=== PATIENT | female | born 1980 | race Caucasian/White ===

== ENCOUNTER 2016-09-25 13:44 | Day surgery (SDC) | payer OTHER ==
[~2016-09-25 13:44] MED LIST: HYDROCODONE/APAP 5/325 TAB PO SCH
--- NOTE | 2016-09-25 14:46 | EDPHY ---
H & P Stated Complaint: [facility] Source: Patient - Personal History LMP (Females 10-55): Over 28 Days Ago Current Tetanus/Diphtheria Vaccine: Yes - Medical/Surgical History Hx Asthma: No Hx Chronic Respiratory Disease: No Hx Diabetes: No Hx Cardiac Disease: No Hx Renal Disease: No Hx Cirrhosis: No Hx Alcoholism: No Hx HIV/AIDS: No Hx Splenectomy or Spleen Trauma: No Other PMH: denies - Social History Smoking Status: Never smoked Time Seen by Provider: 09/25/16 14:35 HPI/ROS: CHIEF COMPLAINT: Abdominal cramping HISTORY OF PRESENT ILLNESS: this is a 35-year-old female presenting to the emergency department [facility] . patient states she took a a portion pill on 08/21/2016 since then his had vaginal spotting. [facility] questionable molar 5 week. patient reports vaginal spotting with some tissue noted in abdominal cramping. denies any other complaints REVIEW OF SYSTEMS: Constitutional: No fever, no chills. Eyes: No discharge. no blurred vision ENT: No sore throat. Cardiovascular: No chest pain, no palpitations. Respiratory: No cough, no shortness of breath. Gastrointestinal: abdominal pain, no vomiting. Genitourinary: No hematuria. Musculoskeletal: No back pain. Skin: No rashes. Neurological: No headache. (Anh Simmons) - Physical Exam Exam: General Appearance: Alert, no distress. tearful Eyes: Pupils equal and round no pallor or injection. ENT, Mouth: Mucous membranes moist. Respiratory: There are no retractions, lungs are clear to auscultation. Cardiovascular: Regular rate and rhythm. Gastrointestinal: Abdomen is soft no distension. Right lower quadrant tenderness suprapubic tenderness on palpation, no masses, bowel sounds normal. Neurological: no focal deficits Skin: Warm and dry, no rashes. Musculoskeletal: Neck is supple nontender. Extremities: symmetrical, full range of motion. Psychiatric: Patient is oriented X 3, acting age appropriate (Anh Simmons) Constitutional: Initial Vital Signs Temperature (C) 36.9 C 09/25/16 13:49 Heart Rate 88 09/25/16 13:49 Respiratory Rate 17 09/25/16 13:49 Blood Pressure 114/76 09/25/16 13:49 O2 Sat (%) 96 09/25/16 13:49 O2 Delivery Mode Room Air Allergies/Adverse Reactions: No Known Allergies Allergy (Unverified 09/25/16 13:49) Home Medications: Medication Instructions Recorded NK [No Known Home Meds] 09/25/16 Medical Decision Making - Diagnostics Imaging Results: Imaging Impressions Pelvic/Renal Ultrasound 09/25/16 14:47 Impression: 1. Suspect right ectopic with a right-sided adnexal mass measuring 7.3 x 4.2 x 4 cm, with small amount of pelvic free fluid, possibly early hemorrhage. 2. Normal left ovary without torsion. 3. No intrauterine or molar identified. Findings and recommendations discussed with Emergency Department physician, Anh Simmons NP at 1613 hour, 09/25/2016. Final report concurs with initial preliminary interpretation. ED Course/Re-evaluation: discussed ED plan of care with patient: CBC, BMP, urinalysis, hCG quant, pelvic ultrasound ordered 1615: Spoke with Dr. Paris ultrasound finding shows right adnexal mass 7.3 x 4.2 x 4 cm more than likely ectopic no IUP seen 1620: discussed results with patient. 1625: Consulted with , she will evaluate patient. 1710: patient report hand doctor Dr. Wiliknson. patient stable, Dr. Dutta at bedside (Anh Simmons) Differential Diagnosis: Other differential diagnosis considered but not limited to IUP, ovarian cyst , ectopic and molar (Anh Simmons) Other Provider: Dr. Dutta has evaluated the patient and will take her to the or. (Saurabh Wilkinson) - Data Points Laboratory Results: Laboratory Results 09/25/16 15:01 09/25/16 15:01 09/25/16 09/25/16 09/25/16 16:33 15:01 15:01 WBC 11.23 10^3/uL H 10^3/uL (3.80-9.50) RBC 4.53 10^6/uL 10^6/uL (4.18-5.33) Hgb 12.8 g/dL g/dL (12.6-16.3) Hct 39.4 % % (38.0-47.0) MCV 87.0 fL fL (81.5-99.8) MCH 28.3 pg pg (27.9-34.1) MCHC 32.5 g/dL g/dL (32.4-36.7) RDW 12.4 % % (11.5-15.2) Plt Count 362 10^3/uL 10^3/uL (150-400) MPV 9.9 fL fL (8.7-11.7) Neut % (Auto) 66.4 % % (39.3-74.2) Lymph % (Auto) 24.8 % % (15.0-45.0) [place] % (Auto) 6.6 % % (4.5-13.0) Eos % (Auto) 1.2 % % (0.6-7.6) Baso % (Auto) 0.5 % % (0.3-1.7) Nucleat RBC Rel Count 0.0 % % (0.0-0.2) Absolute Neuts (auto) 7.46 10^3/uL H 10^3/uL (1.70-6.50) Absolute Lymphs (auto) 2.78 10^3/uL 10^3/uL (1.00-3.00) Absolute Monos (auto) 0.74 10^3/uL 10^3/uL (0.30-0.80) Absolute Eos (auto) 0.13 10^3/uL 10^3/uL (0.03-0.40) Absolute Basos (auto) 0.06 10^3/uL 10^3/uL (0.02-0.10) Absolute Nucleated RBC 0.00 10^3/uL 10^3/uL (0-0.01) Immature Gran % 0.5 % % (0.0-1.1) Immature Gran # 0.06 10^3/uL 10^3/uL (0.00-0.10) Sodium 137 mEq/L mEq/L (134-144) Potassium 3.9 mEq/L mEq/L (3.5-5.2) Chloride 105 mEq/L mEq/L (97-110) Carbon Dioxide 21 mEq/l L mEq/l (22-31) Anion Gap 11 mEq/L mEq/L (8-16) BUN 11 mg/dL mg/dL (7-23) Creatinine 0.6 mg/dL mg/dL (0.6-1.0) Estimated GFR > 60 Glucose 104 mg/dL H mg/dL (70-100) Calcium 9.1 mg/dL mg/dL (8.5-10.4) Total Bilirubin Conjugated Bilirubin Unconjugated Bilirubin AST ALT Alkaline Phosphatase Total Protein Albumin Beta HCG, Quant 4582.10 mIU/mL H mIU/mL (0-4.83) Patient ABO/Rh B POSITIVE Antibody Screen NEGATIVE 09/25/16 15:00 WBC RBC Hgb Hct MCV MCH MCHC RDW Plt Count MPV Neut % (Auto) Lymph % (Auto) [place] % (Auto) Eos % (Auto) Baso % (Auto) Nucleat RBC Rel Count Absolute Neuts (auto) Absolute Lymphs (auto) Absolute Monos (auto) Absolute Eos (auto) Absolute Basos (auto) Absolute Nucleated RBC Immature Gran % Immature Gran # Sodium Potassium Chloride Carbon Dioxide Anion Gap BUN Creatinine Estimated GFR Glucose Calcium Total Bilirubin 0.5 mg/dL mg/dL (0.1-1.4) Conjugated Bilirubin 0.4 mg/dL mg/dL (0.0-0.5) Unconjugated Bilirubin 0.1 mg/dL mg/dL (0.0-1.1) AST 22 IU/L IU/L (14-46) ALT 22 IU/L IU/L (9-52) Alkaline Phosphatase 68 IU/L IU/L (38-126) Total Protein 6.4 g/dL g/dL (6.3-8.2) Albumin 3.9 g/dL g/dL (3.5-5.0) Beta HCG, Quant Patient ABO/Rh Antibody Screen Medications Given: Discontinued Medications Morphine Sulfate (Morphine) 1 mg IVP EDNOW ONE Stop: 09/25/16 14:52 Last Admin: 09/25/16 15:54 Dose: 1 mg Departure - Departure Disposition: To OP Cath/Surgery Clinical Impression: Ectopic Qualifiers: Location of ectopic : unspecified location Intrauterine status: without intrauterine Qualified Code(s): O00.90 - Unspecified ectopic without intrauterine Condition: Fair Referrals: NONE *PRIMARY CARE P,. [Primary Care Provider] - As per Instructions
[2016-09-25 15:10] LABS: % IMMATURE GRANULYOCYTES 0.5 % (0.0-1.1); ABSOLUTE IMMATURE GRANULOCYTES 0.06 10^3/uL (0.00-0.10); ADD DIFF? NO; ADD MORPH? NO; ADD SCAN? NO; ATYPICAL LYMPHOCYTE FLAG 10 (0-99); FRAGMENT RBC FLAG 0 (0-99); HEMATOCRIT 39.4 % (38.0-47.0); HEMOGLOBIN 12.8 g/dL (12.6-16.3); LEFT SHIFT FLG 0 (0-99); LIPEMIA HEMOLYSIS FLAG 80 (0-99); MEAN CELL HEMOGLOBIN 28.3 pg (27.9-34.1); MEAN CELL HEMOGLOBIN CONCENTR. 32.5 g/dL (32.4-36.7); MEAN PLATELET VOLUME 9.9 fL (8.7-11.7); PLATELET CLUMPS FLAG 10 (0-99); PLATELET COUNT 362 10^3/uL (150-400); RED BLOOD CELL COUNT 4.53 10^6/uL (4.18-5.33); RED CELL DISTRIBUTION WIDTH 12.4 % (11.5-15.2)
[2016-09-25 15:21] LABS: ANION GAP 11 mEq/L (8-16); CALCIUM 9.1 mg/dL (8.5-10.4); CARBON DIOXIDE 21 mEq/l (22-31); CHLORIDE 105 mEq/L (97-110); CREATININE 0.6 mg/dL (0.6-1.0); GLOMERULAR FILTRATION RATE > 60; GLUCOSE 104 mg/dL (70-100); POTASSIUM 3.9 mEq/L (3.5-5.2); SODIUM 137 mEq/L (134-144)
[2016-09-25 16:08] VITALS: O2SAT 97
[2016-09-25 17:09] LABS: ALBUMIN 3.9 g/dL (3.5-5.0); BILIRUBIN,TOTAL 0.5 mg/dL (0.1-1.4); BILIRUBIN-CONJUGATED 0.4 mg/dL (0.0-0.5); BILIRUBIN-UNCONJUGATED 0.1 mg/dL (0.0-1.1); TOTAL PROTEIN 6.4 g/dL (6.3-8.2)
[2016-09-25] MEDS ORDERED: BUPIVACAINE/EPI 0.5% 30 ML SDV ONE (17:31)
[2016-09-25 17:38] VITALS: BP 132/84; PULSE 82; RESP 18; TEMP 98.2
--- NOTE | 2016-09-25 19:06 | GHP ---
[f rep st] PREOP HISTORY AND PHYSICAL DATE OF ADMISSION: 09/25/2016 SERVICE: Obstetric. HISTORY: Upon evaluation, the patient is a 35-year-old female G1, P0, who had her sure last menstru al period on July 13, who was evaluated by [facility] on August [facility], at which time she had a n ultrasound showing what she was told was a yolk sac, and, as this was an undesired , the patient took an abortive pill from [facility] on that day. The patient had a light amount o f bleeding after that and off and on spotting since then. The patient, on that day, also was report ing right lower quadrant discomfort that has periodically bothered her the same since then. The pat rudolph presented to the emergency room today complaining of slightly increased right lower quadrant pa in as well as the continued bleeding. At an urgent care site, she had an ultrasound performed that showed questionable molar tissue and was re-evaluated at [facility] with now signs t hat are consistent with a right ectopic. The mass in the right adnexa is measuring 7 x 4 cm with a quantitative hCG in the 4500s. The uterus shows a thin endometrium with no tissue, measuring 5 mm. The patient is advised of the ultrasound findings and the recommendation to proceed with laparoscop y for the removal of the right tube. The patient is advised that the size of the dilated right adne xa does not lend itself to treatment with methotrexate. Risks and benefits of a laparoscopy are rev iewed with the patient, and the consent form signed. As the patient ate lunch at 12:40, we are wait ing for the most safety of her airway for 8 hours. If the patient's clinical stable status changes, then we will proceed with surgery. PAST MEDICAL HISTORY: Negative. The patient denies asthma or any cardiac or respiratory problems. The patient denies hypertension or thyroid disorder or high blood pressure. PAST SURGICAL HISTORY: Only tonsils and adenoids removed at age 16. OBSTETRIC HISTORY: This is the patient's first conception. She has a history of regular menstrual periods that occur monthly. The patient has not been using any formal control and only emerge ncy contraception when needed. The patient currently does not have a sexual partner. I suggest agus t the patient find a more proactive contraceptive approach with her next partner, and she states she intends to have an IUD placed. CURRENT MEDICATIONS: Occasional multivitamins and Advil recently for the right lower quadrant pain. She reports the last dose was 400 mg early this morning. CURRENT ALLERGIES: No known drug allergies. REVIEW OF SYSTEMS: Essentially 10-system review performed with the pertinent positives noted above. SOCIAL HISTORY: The patient was a smoker in the past, but none for 5 years. Rare alcohol use and d enies drug use. Ultrasound reveals the uterus 8 x 4 x 5 cm with the endometrial thickness of 5 mm with no intrauteri ne sac. Right and left ovary are normal. The right adnexa is a complex mass 7.3 x 4.2 x 4 cm suspi cious for an ectopic . There is no free fluid in the pelvis, a small amount in the posteri or cul-de-sac. Neither ovary shows evidence of torsion. CURRENT LABORATORY RESULTS: CBC with a mildly elevated white count of 11.2, H and H are 12 and 39, and platelets are normal at 362. Chem panel is normal with a glucose of 104 and normal liver functi on tests. The hCG is 4582. The patient's blood type is B positive with no unusual antibodies. PHYSICAL EXAM: GENERAL: The patient is a well-developed, overweight female in no distress. The pa tient had 1 mg of morphine approximately 2 hours before our discussion. VITAL SIGNS: The patient's weight 99 kg. Blood pressure 108 to 132 over 57 to 84. The patient is afebrile at 36.8, and heart rate is in the 60s to 80s. ABDOMEN: Soft and nondistended. There is mild tenderness with deep pa lpation in the right lower quadrant. PELVIC: Exam is not performed. EXTREMITIES: Nontender with only minimal edema. ASSESSMENT: Suspected right ectopic , hemodynamically stable. Status post attempt at abor tive agent orally. PLAN: After an appropriate interval of time from eating last, the patient will proceed to the [facility] room as long as she remains stable. She will be discharged after laparoscopy for removal of th e right tube and ectopic. Proposed followup with office for control management. /[id number]/MODL
[2016-09-25] MEDS ORDERED: LIDOCAINE 2% 100 MG/5 ML SYR ONE (20:31)
[2016-09-25] MEDS ORDERED: ONDANSETRON 4 MG/2 ML VIAL ONE (20:31)
[2016-09-25] MEDS ORDERED: ROCURONIUM 50 MG/5 ML VIAL ONE ×2 (20:31→21:26)
[2016-09-25] MEDS ORDERED: PROPOFOL 200 MG/20 ML VIAL ONE (20:31)
[2016-09-25] MEDS ORDERED: SUGAMMADEX SODIUM 200 MG/2 ML VIAL IVP ONE (20:31)
[2016-09-25] MEDS ORDERED: DEXAMETHASONE 4 MG/ML VIAL ONE (20:31)
[2016-09-25] MEDS ORDERED: MIDAZOLAM 2 MG/2 ML VIAL ONE (20:31)
[2016-09-25] MEDS ORDERED: fentaNYL 100 MCG/2 ML INJ ONE ×4 (20:32→23:33)
[2016-09-25] MEDS ORDERED: KETOROLAC 30 MG/1 ML SDV ONE (22:53)
[2016-09-25] MEDS ORDERED: HYDROCODONE/APAP 5/325 TAB ONE (23:53)
== END 2016-09-26 01:20 | disposition home or self-care (01) ==
LOC: FSGY 17:41 → F3E 18:13 → UNDOADMOB 18:13 → F3E 22:52 → FSGY 09-26 01:20
PROVIDERS: ATTEND Obstetrics & Gynecology
PROC: 0UT54ZZ Resection of Right Fallopian Tube, Percutaneous Endoscopic Approach (ICD-10-PCS; principal; 2016-09-25 18:30)
DX: O00.10 Tubal pregnancy without intrauterine pregnancy (principal)
CPT/HCPCS: 96374; J1100; J1885; J2001; J2250; J2405; J2704; J3010